=== PATIENT | female | born 1965 | race Hispanic/Latino ===

== ENCOUNTER 2020-03-30 10:22 | Emergency (ER) | payer OTHER ==
[~2020-03-30] VITALS: Ht 172.7 cm; Wt 77.1 kg
[~2020-03-30 10:22] MED LIST: ATORVASTATIN CA40 MG PO; CYMBALTA30 MG PO; GABAPENTIN300 MG PO; GEMFIBROZIL600 MG PO; HYDROCODON-ACE1 EA11 PO; METHOCARBAMOL750 MG PO; NAPROXEN500 MG PO; VICODIN ES 7.51 EACH; Z.0.METFORMIN HCL100 PO
[2020-03-30] MEDS ORDERED: KETOROLAC TROMETHAMINE 30 MG/ML VIAL IM STA (10:41)
[2020-03-30] MEDS ORDERED: ACETAMINOPHEN 325 MG TAB PO ONE (10:45)
[2020-03-30 11:53] VITALS: BP 135/73
== END 2020-03-30 12:10 | disposition home or self-care (01) ==
LOC: ER 11:00
DX: M25.512 Pain in left shoulder (principal); E11.9 Type 2 diabetes mellitus without complications; Z85.89 Personal history of malignant neoplasm of other organs and systems
CPT/HCPCS: 73030; 93005; 99283; J1885

== ENCOUNTER 2020-06-08 18:25 | Emergency (ER) | payer OTHER ==
[~2020-06-08] VITALS: Ht 172.7 cm; Wt 90.7 kg
[2020-06-08] MEDS ORDERED: ASPIRIN 81 MG CHEW TAB PO ONE (19:00)
[2020-06-08 19:11] LABS: BASOPHILS % 0.5 % (0.0-1.0); EOSINOPHILS # (AUTO) 0.2 (0.0-0.4); EOSINOPHILS % 2.8 % (0.0-6.0); HEMATOCRIT 27.6 % (34.2-44.1); HEMOGLOBIN 9.2 g/dL (12.0-16.0); LYMPHOCYTES # (AUTO) 1.6 (1.0-3.2); LYMPHOCYTES % 26.1 % (18.0-39.1); MEAN CORPUSCULAR HEMOGLOBIN 29.7 pg (28-32); MEAN CORPUSCULAR HGB CONC 33.3 g/dL (31-35); MONOCYTES # (AUTO) 0.3 (0.2-0.8); MONOCYTES % 5.4 % (4.4-11.3); NEUTROPHILS % 64.9 % (38.7-80.0); PLATELET COUNT 181 x10e3/uL (140-360); RED CELL DISTRIBUTION WIDTH 13.3 % (11.7-14.4)
[2020-06-08 19:30] LABS: ALBUMIN 1.8 g/dL (3.5-5.0); ALBUMIN/GLOBULIN RATIO 0.4 (0.8-2.0); ANION GAP 11.9 mmol/L (8-16); CALCIUM 8.5 mg/dL (8.4-10.2); CREATININE, SERUM 1.2 mg/dL (0.57-1.11); POTASSIUM 3.9 mmol/L (3.5-5.1)
[2020-06-08] MEDS ORDERED: CLONIDINE HCL 0.2 MG TAB PO ONE (19:30)
[2020-06-08 19:37] LABS: CREATINE KINASE MB 2.1 ng/mL (0-5.0)
[2020-06-08] MEDS ORDERED: HYDROCHLOROTHIA25 MG PO (20:12)
[2020-06-08 20:29] VITALS: BP 110/65
== END 2020-06-08 20:28 | disposition home or self-care (01) ==
LOC: ER 18:37
DX: I10 Essential (primary) hypertension (principal); E11.9 Type 2 diabetes mellitus without complications; Z85.89 Personal history of malignant neoplasm of other organs and systems
CPT/HCPCS: 36415; 71045; 80053; 82550; 82553; 84484; 85025; 93005; 99284

== ENCOUNTER 2021-03-05 00:30 | Emergency (ER) | payer OTHER ==
[~2021-03-05] VITALS: Ht 172.7 cm; Wt 90.7 kg
[~2021-03-05 00:30] MED LIST changes: +HYDROCHLOROTHIA25 MG PO
[2021-03-05 02:24] LABS: CLARITY,URINE CLEAR (CLEAR); COLOR,URINE YELLOW (YELLOW); LEUKOCYTE ESTERASE ,URINE NEGATIVE (NEGATIVE); NITRITE,URINE NEGATIVE (NEGATIVE)
[2021-03-05 02:25] LABS: KETONES,URINE NEGATIVE (NEGATIVE); PROTEIN,URINE DIPSTICK >=300 (NEGATIVE); URINE UROBILINOGEN 0.2 mg/dL (0.2 - 1)
[2021-03-05 02:31] LABS: BACTERIA,URINE FEW /HPF; EPITHELIAL CELLS,URINE MODERATE /LPF; WBC,URINE (MAN) 0-5 /HPF (0-5)
[2021-03-05] MEDS ORDERED: TRAMADOL HCL 50 MG TAB PO ONE (04:15)
[2021-03-05] MEDS ORDERED: TRAMADOL HCL 50 MG TAB ONE (04:26)
[2021-03-05] MEDS ORDERED: CEFDINIR300 MG PO (04:42)
[2021-03-05] MEDS ORDERED: ULTRAM50 MG PO (04:42)
[2021-03-05] MEDS ORDERED: CYCLOBENZAPRINE5 MG PO (04:42)
== END 2021-03-05 05:15 | disposition home or self-care (01) ==
LOC: ER 01:36
DX: M54.41 Lumbago with sciatica, right side (principal); R60.9 Edema, unspecified; M51.86 Other intervertebral disc disorders, lumbar region; I10 Essential (primary) hypertension; E11.9 Type 2 diabetes mellitus without complications; Z85.89 Personal history of malignant neoplasm of other organs and systems
CPT/HCPCS: 72131; 81001; 93971; 99283